=== PATIENT | female | born 1960 | race Caucasian/White ===

== ENCOUNTER 2025-01-25 05:15 | Observation (INO) ==
--- NOTE | 2025-01-03 12:20 | PAT Medication Instructions ---
Medication Instructions Date of Service January 03, 2025 Home Medications duloxetine 40 mg capsule,delayed release 40 mg PO QAM Lactobacillus acidophilus 10 billion cell capsule (Probiotic) 10,000 mmu cells PO QAM ascorbic acid 30 mg-collagen, hydrolyzed 833.3 mg tablet (Collagen Skin Renewal) 1 tab PO QAM cartilage 40 mg-collagen II 10 mg-boron 5 mg-hyaluronate 3.3 mg tablet (Joint Health) 1 tab PO QAM diclofenac sodium 1 % topical gel 2 g topical QAM magnesium 200 mg tablet 200 mg PO HS multivitamin 1 tab PO QAM omega 5-sig-stg-fish oil 1,000 mg (120 mg-180 mg) capsule (Fish Oil) 1 cap PO DAILY STOP taking 2 weeks before surgery (or as soon as possible if surgery is within 2 weeks) ascorbic acid 30 mg-collagen, hydrolyzed 833.3 mg tablet (Collagen Skin Renewal) 1 tab PO QAM cartilage 40 mg-collagen II 10 mg-boron 5 mg-hyaluronate 3.3 mg tablet (Joint Health) 1 tab PO QAM omega 7-rnf-xft-fish oil 1,000 mg (120 mg-180 mg) capsule (Fish Oil) 1 cap PO DAILY STOP taking 24 hours before surgery diclofenac sodium 1 % topical gel 2 g topical QAM DO NOT take the morning of surgery Lactobacillus acidophilus 10 billion cell capsule (Probiotic) 10,000 mmu cells PO Q multivitamin 1 tab PO QAM Take morning of surgery With a small sip of water, OTHERWISE NOTHING TO EAT OR DRINK AFTER MIDNIGHT: duloxetine 40 mg capsule,delayed release 40 mg PO QAM Take evening before surgery magnesium 200 mg tablet 200 mg PO HS Other Notes If you have any questions please call us at [phone] or [phone] or [phone] or [phone]
--- NOTE | 2025-01-06 09:58 | Anesthesiology Consultation ---
Date of Service January 06, 2025 Assessment & Plan (1) Encounter for pre-operative examination: - Infectious disease screening: Per assessment on 01/06/25- No known recent infectious disease contacts. Patient has had increased phlegm/mild cough starting 3+ weeks ago. Evaluated by PCP. [place] to be likely r/t allergies. Symptom onset > 10 days prior to DOS. Patient advised to contact PAT/surgeon if symptoms worsening/not at baseline prior to surgery. Nothing further needed at this time. - Outpatient joint assessment: Pt currently scheduled for inpatient pathway. If surgeon requests review for outpatient joint pathway, patient is an acceptable candidate for outpatient joint program from anesthesia standpoint pending surgeon's office assessment that patient is motivated, has good support and completes [facility] Program preop requirements. Chart Review Chart Review: Acceptable Risk for Surgery and Patient seen in Pre Admission Testing Teaching & Discussion Pre-Anesthesia Teaching/Discussion Notes: Instructed NPO after midnight before surgery,except medications with 15 cc of water. Medication instructions provided according to the PAT guidelines. History Surgery Operation Date: 01/25/25 07:00 Proposed Procedures p Left Total Knee Arthroplasty - Doug Ha MD Height/Weight Height: 5 ft 4 in Weight: 94.7 kg Allergies Allergy/AdvReac Type Severity Reaction Status Date / Time latex Allergy Intermediate Rash Verified 12/30/24 09:04 Penicillins Allergy Unknown Unknown Verified 01/06/25 10:43 (childhood) Medications Home Medications Medication Instructions Recorded Confirmed Last Taken duloxetine 40 mg capsule,delayed 40 mg PO QAM 09/09/24 12/30/24 Unknown release Lactobacillus acidophilus 10 10,000 mmu cells PO QAM 12/30/24 12/30/24 Unknown billion cell capsule (Probiotic) ascorbic acid 30 mg-collagen, 1 tab PO QAM 12/30/24 12/30/24 Unknown hydrolyzed 833.3 mg tablet (Collagen Skin Renewal) cartilage 40 mg-collagen II 10 1 tab PO QAM 12/30/24 12/30/24 Unknown mg-boron 5 mg-hyaluronate 3.3 mg tablet (Joint Health) diclofenac sodium 1 % topical gel 2 g topical QAM 12/30/24 12/30/24 Unknown magnesium 200 mg tablet 200 mg PO HS 12/30/24 12/30/24 Unknown multivitamin 1 tab PO QAM 12/30/24 12/30/24 Unknown omega 8-rtz-yws-fish oil 1,000 mg 1 cap PO DAILY 12/30/24 12/30/24 Unknown (120 mg-180 mg) capsule (Fish Oil) Past Medical History Medical History Arthritis Fibromyalgia History of COVID-2020 Hyperlipidemia No meds Exercise / Class Metabolic Activity II 4-5 Yardwork/Stairs/Walk up hill (one FS: No CP, no SOB) Past Family History Family History Father History of anesthesia reaction Father: Awareness/"feeling" with surgery in the past (pacemaker/urinary stent) Past Surgical History Surgical History History of carpal tunnel release R/L History of colonoscopy Hx of elbow surgery R/L Hx of tooth extraction [place] teeth extracted Past Anesthesia History No Hx of Anesthesia Complications Father: Awareness/"feeling" with surgery in the past (pacemaker/urinary stent) History of PONV No Hx of PONV and No Hx of Motion Sickness Social History Smoking Status: Former smoker Do You Dip or Chew Tobacco: No Smoking End Date: Quit 20+ years ago Hx Alcohol Use: Yes Alcohol type: beer, wine and hard liquor alcohol intake frequency: 0-2 drinks per day (1-2 drinks/day) Hx Substance Use: No substance use type: does not use Review of Systems Patient denies chest pain, shortness of breath, dyspnea on exertion, fever, chills, cough, wheezing, palpitations. Physical Exam Vital Signs BP 127/80 P 77 TEMP 98.3 SP02 96%RA RESP 16 Physical Full cervical extension range of motion. Full TMJ range of motion. TMD > 3.5 finger breaths Mallampati Score III Dentition: intact, several caps Lungs: clear throughout to auscultation Cardiac: regular rate and rhythm, no murmurs noted Spine: normal Carotid arteries: negative bruit Extremities: no LE edema Short neck Lab Results Anesthesia Preop Results Results Anesthesia Widget: WBC 7.80 K/ul (4.8-10.8) 01/06/25 Hgb 13.4 g/dl (12.0-16.0) 01/06/25 Hct 41.2 % (37.0-47.0) 01/06/25 Plt 266 K/uL (130-400) 01/06/25 Na 137 mmol/L (136-145) 01/06/25 K 4.6 mmol/L (3.5-5.1) 01/06/25 Cl 103 mmol/L (98-107) 01/06/25 CO2 29 mmol/L (21-32) 01/06/25 BUN 18 mg/dl (6-23) 01/06/25 Creat 0.85 mg/dl (0.6-1.2) 01/06/25 Glucose Level 98 mg/dl (70-99(Fasting)) 01/06/25 PT 10.1 Seconds (9.0-12.0) 01/06/25 PTT 29 Seconds (21-31) 01/06/25 INR 0.9 (0.9-1.1) 01/06/25 Blood Type O Positive 01/06/25 Antibody Screen NEGATIVE 01/06/25 Testing Electrocardiogram Date: 01/06/25 NSR at 82bpm. PRWP, consider anterior AL vs lead placement vs LVH. Chest X-Ray Date: 01/06/25 FINDINGS: Heart size and pulmonary vasculature are normal. No consolidation or pleural effusion. There is minimal scoliosis. IMPRESSION: No acute findings. Stress Test Date: 11/26/21 Type: exercise Exercise ECG treadmill stress test negative for inducible ischemia. 90% MPHR. 6 METS. Dyspnea noted with stress. Hypertensive blood pressure response to exercise.
[2025-01-25] MEDS: METOCLOPRAMIDE HCL 10 MG TABLET PO SCH (05:53)
[2025-01-25] MEDS: FAMOTIDINE 20 MG TAB PO SCH (05:53)
[2025-01-25] MEDS: CeleBREX 200 MG CAP PO SCH (05:53)
[2025-01-25] MEDS: dexAMETHasone**PF** 10 MG/ML VIAL IV SCH (05:53)
[2025-01-25] MEDS: ACETAMINOPHEN 500 MG TAB PO SCH ×2 (05:53→13:28)
[2025-01-25] MEDS: LR 500ML BOLUS, THEN 15ML/HR IV SCH (05:54)
[2025-01-25] MEDS: LR 60ML/HR IV SCH (05:54)
[2025-01-25] MEDS ORDERED: BUPIVACAINE 0.25% PF 30 ML VIAL ONE (06:21)
[2025-01-25] MEDS ORDERED: BUPIVACAINE 0.5 % 5 MG/1 ML PF 10ML VIAL ONE (06:21)
[2025-01-25] MEDS ORDERED: ONDANSETRON INJ 2 MG/ML 2 ML VIAL IV PRN ×2 (06:28→12:49)
[2025-01-25] MEDS ORDERED: ATROPINE SULFATE 0.1 MG/ML 10ML SYR IV PRN (06:28)
[2025-01-25] MEDS ORDERED: MIDAZOLAM HCL 1 MG/ML 2ML VIAL ONE ×2 (06:36→06:37)
--- NOTE | 2025-01-25 06:47 | History & Physical Bridge Note ---
Date of Service January 25, 2025 History & Physical Bridge Note I have examined the patient, reviewed the History & Physical and in the interval since the performance of the History & Physical I have noted the following changes of clinical significance: no changes noted
[2025-01-25] MEDS ORDERED: PHENYLEPHRINE 100MCG/ML 5ML SYR ONE (08:10)
[2025-01-25] MEDS ORDERED: ePHEDrine sulfate 50 MG/5 ML SYR ONE (08:10)
[2025-01-25] MEDS ORDERED: GLYCOPYRROLATE 0.2 MG/ML VIAL ONE (08:33)
[2025-01-25] MEDS: VANCOMYCIN HCL 1000MG/20ML VIAL ONE (08:41)
[2025-01-25] MEDS: ORTHO JOINT ANESTHETIC ONE (08:41)
[2025-01-25] MEDS: ROPIV 0.5% 246mg, Ketorolac 30mg, EPINEPHrine 0.5mg in NSS INFIL SCH (08:41)
[2025-01-25] MEDS ORDERED: PROPOFOL IV EMULSION 10 MG/ML 100 ML VIAL IV ONE (09:14)
--- NOTE | 2025-01-25 10:11 | Operative Report ---
PG Post Operative Report Pre & Post Diagnosis Operation Date: 01/25/25 07:00 Pre-Op Diagnosis: Left Knee Degenerative Joint Disease Post-Op Diagnosis: Left Knee Degenerative Joint Disease I identified the patient and participated in the time-out.: Yes Procedure Operation Date: 01/25/25 07:00 Actual Procedures p Left Total Knee Arthroplasty(Left) - Doug Ha MD Surgeon Doug Ha MD Religious Leader Santosh Ruiz PA-C Estimated Blood Loss 50 Findings Consistent with Post-Op Diagnosis Specimens Left knee sent for pathology. Anesthesia Type Spinal MAC Complications none Disposition Accompanied Patient To Recovery: No Indications The patient is a 64-year-old female who is now about 20+ years out from a previous ACL reconstruction of the left knee. She did quite well for many years. Over the past several years she developed increased pain discomfort in her left knee. She failed conservative measures. X-rays show progressive left knee arthritis. She elected proceed with left total knee arthroplasty. Description of Procedure Operative implants consist of: 1 Biomet Vanguard size 65 left posterior stabilized femoral component. 2. Biomet size 67 tibial tray with a 12.5 mm x 80 mm stem extension. 3. 12 mm posterior stabilized polyethylene insert. 4. 31 x 8 all poly patella. The patient was taken to the operating, identified, placed on the operating table in the supine position. All contact areas were appropriately padded. IV antibiotics were by anesthesia team. A spinal anesthetic and adductor canal block had been provided in the holding area. A Kendrick catheter was placed in sterile fashion to the left phytate was then placed in the left lower extremity was then prepped and draped in usual sterile fashion. The left leg was elevated and exsanguinated with use of an Esmarch and the tourniquet was placed at 300 mmHg. An anterior approach left knee was then performed to longitudinal incision centered over the patella. I did use a previous incision distally. Sharp dissection was carried through subcutaneous tissue down the extensor mechanism. A medial parapatellar arthrotomy incision was made. Some subperiosteal dissection was carried out medially. The fat pad was resected from the patella tendon. Lateral patellofemoral ligament was released. Patella subluxated laterally and the knee was flexed. The ACL and PCL were then released from the distal femur. The tibia subluxated anteriorly. The external treatment LYMErix then placed in the anterior face of the tibia and adjusted 14 mm medially. Proximal tibial cut was made essentially flush with the very most deficient aspect of the posterior medial tibial plateau. Some osteophytes taken off medially. Tibia sized to size 67. Attention drawn the femur. The distal femur there was a sharp drill. Intramedullary canal was suction. A left 5 degree valgus cutting guide was placed. This femoral cutting block was pinned in place. This femoral cut was made to take additional 3 mm of bone off distal femur. The femur was then sized to a size 65. The AP cutting block was pinned parallel to the epicondylar axis which was 4 degrees of external rotation. The anterior cut, anterior chamfer, posterior cut, posterior chamfer cuts were made. The box cutting guide was placed and just slight lateral and the box cut was made. The knee was flexed. The remnants of the medial and lateral menisci were excised. The osteophytes taken off the posterior aspect of the femur. A trial femoral component was placed. The tibial tray was then pinned in Felicitas external rotation. The drill and stem punch were used to create defect in the proximal tibial tray. I then reamed up to a size 14 on the reamer. We then assembled the 12.5 mm stem extension. The tibial trial was placed and fit nicely. We trialed the knee and the 12 mm insert fit most appropriately. Attention drawn the patella. The patella was cleaned of all soft tissue. Patella thickness measured 21 mm in thickness was cut down to about 15. Was sized to a size 34 patella. The lug holes were drilled for 34 patella. The lateral osteophyte was removed. The patella button was placed. Knee was taken through range of motion patella tracked nicely with no thumbs test. Attention drawn to placement permanent components. NuPrep all trial components were removed. Bone plug was placed into the distal femur limit blood loss. A double batch [place] G cement was mixed. I did add an additional gram of vancomycin due to her history of previous surgery. A Biomet Vanguard size 65 left Po stabilized femoral comp onent, a size 67 tibial tray with a 12.5 mm x 80 mm stem extension, 12 mm posterior box polyethylene insert, and a 31 x 8 all poly patella and then cemented in place. Knee was brought out into full extension. A final cement check was then performed. Pericapsular tissues were injected with total 100 cc of Ortho mix. The patient did receive 1 g tranexamic acid. The tourniquet was then let down for final tourniquet time was 64 minutes. Hemostasis was reduced electrocautery. Extensor [place] then closed with combination 1 PDS suture #1 Vicryl suture in [id number] fashion. Extensor [place] checked found to be intact. The subcutaneous tissue was then closed with 2 Dexon suture in a buried interrupted fashion skin was closed skin gerson. The leg was then cleaned and dried and a sterile dressing with Xeroform, 4 fours, sterile cast padding and Miguel bandage were applied. The patient was then transferred to the recovery room in stable condition. Patient tolerated the procedure well and there were no complications. Santosh Ruiz, my physician marketing assistant retail division, was present for the entire procedure. His assistance was required for proper patient positioning, prepping and draping, surgical exposure, retraction, perform the technical details of the operation, placement of the implants, closure of the incision site, and placement of postoperative sterile bandage. I attest to the content of the Intraoperative Record and any orders documented therein. Any exceptions are noted below.
--- NOTE | 2025-01-25 10:19 | XRay Report ---
TWO VIEWS LEFT KNEE CLINICAL HISTORY: Postoperative examination. FINDINGS: AP and crosstable lateral portable views of the left knee are compared to study dated 2024. A left knee arthroplasty is in near anatomic alignment. There has been undersurface remodeling of the patella. No acute fracture is seen. There are expected postoperative changes around the knee i ncluding skin clips, soft tissue edema, and subcutaneous gas. IMPRESSION: Expected postoperative changes status post left knee arthroplasty. No acute fracture is s een. ACT 112: Negative or not required by law. Electronically signed by: Aditya Espinoza M.D. 01/25/2025 10:18 AM
--- NOTE | 2025-01-25 11:39 | Anesthesiology Progress Note ---
Date of Service January 25, 2025 Anesthesia Post Procedure Vital Signs Vital Signs: Temp Pulse Pulse Resp BP Pulse Ox O2 Del Method 01/25/25 11:30 97 H 14 142/72 H 97 Nasal Cannula 01/25/25 11:15 98 H 14 138/74 99 Nasal Cannula 01/25/25 11:00 94 H 14 122/68 98 Nasal Cannula 01/25/25 10:50 36.5 C 95 H 12 118/76 98 Nasal Cannula 01/25/25 10:40 94 H 12 119/60 98 Nasal Cannula 01/25/25 10:30 93 H 12 120/61 100 Oxymask 01/25/25 10:20 93 H 12 108/59 L 100 Oxymask 01/25/25 10:10 98 H 14 115/49 L 98 Oxymask 01/25/25 10:00 36.3 C L 100 H 18 88/56 L 98 Oxymask 01/25/25 05:35 37 C 90 18 148/96 H 96 Room Air O2 Flow Rate 01/25/25 11:30 2 01/25/25 11:15 2 01/25/25 11:00 2 01/25/25 10:50 2 01/25/25 10:40 2 01/25/25 10:30 4 01/25/25 10:20 4 01/25/25 10:10 6 01/25/25 10:00 8 01/25/25 05:35 Transfer of Care Handoff Completed per policy Notes Mental Status: alert / awake / arousable and participated in evaluation Patient Amnestic to Procedure: Yes Nausea / Vomiting: adequately controlled Pain: adequately controlled Airway Patency, RR, SpO2: stable & adequate BP & HR: stable & adequate Hydration State: stable & adequate Neuraxial Anesthesia: was administered and sensory block is resolving Anesthetic Complications: no major complications apparent and Pt Satisfied with anesthetic care
[2025-01-25] MEDS ORDERED: diphenhydrAMINE Capsule 25 MG CAP PO PRN (12:49)
[2025-01-25] MEDS ORDERED: ALUMINUM/MAGNESIUM SUSP 30 ML UDC PO PRN (12:49)
[2025-01-25] MEDS ORDERED: NALOXONE HCL 0.4 MG/1 ML VIAL/CARP IV PRN (12:49)
[2025-01-25] MEDS ORDERED: NO NSAIDS SCH (12:49)
[2025-01-25] MEDS ORDERED: METOCLOPRAMIDE HCL INJ 5 MG/ML 2 ML VIAL IV PRN (12:49)
[2025-01-25] MEDS ORDERED: MAGNESIUM HYDROXIDE SUSP 30 ML UDC PO PRN (12:49)
[2025-01-25] MEDS ORDERED: HYDROmorphone INJ 0.5 MG/0.5 ML SYR IV PRN (12:49)
[2025-01-25] MEDS: SODIUM CHLORIDE 0.9% 1,000 ML IV SCH (13:08)
[2025-01-25] MEDS: KETOROLAC 30 MG/ML VIAL IV SCH (13:11)
[2025-01-25] MEDS: TRANEXAMIC ACID / 0.7% NACL 1,000 MG/100 ML BAG IV SCH (15:44)
[2025-01-25] MEDS: ASCORBIC ACID 500 MG TAB PO SCH (16:59)
[2025-01-25] MEDS: DOCUSATE SODIUM 100 MG CAP PO SCH (20:33)
[2025-01-25] MEDS: ASPIRIN 81 MG ECTAB PO SCH (20:33)
[2025-01-25] MEDS: MAGNESIUM OXIDE 400 MG TAB PO SCH (20:33)
[2025-01-25] MEDS: SENNA 8.6 MG TAB PO SCH (20:34)
[2025-01-25] MEDS ORDERED: SENNA 8.6 MG TAB PO SCH (21:00)
[2025-01-26 07:46] LABS: Hematocrit (blood only) 34.6 % (37.0-47.0); Hemoglobin 11.4 g/dl (12.0-16.0); Mean Corpuscular Hemoglobin 29.2 pg (25.0-34.0); Mean Corpuscular Volume 88.5 fL (80.0-100.0); Platelet Count 237 K/uL (130-400); RDW Standard Deviation 45.1 fL (36.4-46.3); Red Blood Count 3.91 M/uL (4.20-5.40); White Blood Count 10.09 K/ul (4.8-10.8)
[2025-01-26 07:59] LABS: Anion Gap 6.0 (3-11); Blood Urea Nitrogen 13.0 mg/dl (6-23); Calcium 8.9 mg/dl (8.6-10.3); Carbon Dioxide 27.0 mmol/L (21-32); Chloride 104.0 mmol/L (98-107); Creatinine Clr Calc Pharmacy 78.4 ml/min; Glucose 112.0 mg/dl (70-99(Fasting)); Potassium 4.2 mmol/L (3.5-5.1); Sodium 137.0 mmol/L (136-145)
[2025-01-26] MEDS: dexAMETHasone 10 MG in SYRINGE 0 ML IV SCH (08:07)
--- NOTE | 2025-01-26 08:24 | Orthopedic Progress Note ---
Date of Service January 26, 2025 Assessment & Plan (1) Status post total left knee replacement: * Continue Current Treatment * Disposition: home * Daily treatment: Physical Therapy/ Occupational Therapy per protocol * Weight bearing status: WBAT * Continue to monitor for ABLA * Pain control * DVT prophylaxis, ASA * Office/hospital f/u 2 weeks for progress check and staple/suture removal * Plan for discharge today pending PT/OT clearance Subjective .Active Problems: S/p left TKA POD 1 64 y/o female s/p left TKA. Doing well overall, pain managed and improved function. Denies fever/chills, chest pain/SOB, nausea/vomiting. Otherwise no complaints. Review of Systems All systems reviewed & are unremarkable except as noted in HPI & below. Physical Exam . * General: Alert and oriented, no acute distress * Constitutional: well-developed, well-nourished. * Respiratory: Normal respiratory effort, no distress * Gastrointestinal: No tenderness to palpation, no rigidity or guarding. * Skin: No rash or lesion. * Neurologic: Grossly normal * Musculoskeletal: left knee surgical dressing CDI, not removed for exam. Otherwise no obvious deformity or overlying skin changes RLE. Diffuse TTP distal thigh and knee region. Otherwise no specific tenderness of proximal thigh, lower leg, foot/ankle. AROM knee flexion 60 degrees limited by dressing. AROM foot/ankle intact. Sensation intact plantar/dorsal foot. Brisk capillary refill. Results & Data Results & Data Laboratory Results . Diagnostic Findings . Knee X-Ray 01/25/25 10:03 TWO VIEWS LEFT KNEE CLINICAL HISTORY: Postoperative examination. FINDINGS: AP and crosstable lateral portable views of the left knee are compared to study dated 09/09/2024. A left knee arthroplasty is in near anatomic alignment. There has been undersurface remodeling of the patella. No acute fracture is seen. There are expected postoperative changes around the knee including skin clips, soft tissue edema, and subcutaneous gas. IMPRESSION: Expected postoperative changes status post left knee arthroplasty. No acute fracture is seen. ACT 112: Negative or not required by law. Electronically signed by: Aditya Espinoza M.D. 01/25/2025 10:18 AM PG Care Time/CCT Total # of Minutes Spent Total Time Spent with Patient: Total time spent is greater than 50% in coordination of care (as documented) at patient's floor/unit and/or counseling patient: Coding Level of Care Code 90900 Post Operative Follow-Up Diagnoses Status post total left knee replacement Z96.652
[2025-01-26] MEDS: OMEGA-3 (PURIFIED FISH OIL) 1 GM CAP PO SCH (08:59)
[2025-01-26] MEDS: MULTIVITAMIN TAB PO SCH (08:59)
[2025-01-26] MEDS ORDERED: MULTIVITAMIN TAB PO SCH (09:00)
[2025-01-26] MEDS ORDERED: ASCORBIC ACID COLLAGEN PO SCH (09:00)
[2025-01-26] MEDS ORDERED: [UNRECOGNIZED DRUG - OTHER] PO SCH (09:00)
[2025-01-26] MEDS: ADVANCED PROBIOTIC 625 MG CAPSULE PO SCH (09:28)
== END 2025-01-26 10:51 | disposition home health service (06) ==
LOC: ASU 05:15 → PACUINP 05:15 → 3N 12:48

== ENCOUNTER 2025-05-11 08:58 | Observation (INO) ==
--- NOTE | 2025-04-11 10:13 | PAT Medication Instructions ---
Medication Instructions Date of Service April 11, 2025 Home Medications duloxetine 40 mg capsule,delayed release 40 mg PO QAM Lactobacillus acidophilus 10 billion cell capsule (Probiotic) 10,000 mmu cells PO QAM ascorbic acid 30 mg-collagen, hydrolyzed 833.3 mg tablet (Collagen Skin Renewal) 1 tab PO QAM cartilage 40 mg-collagen II 10 mg-boron 5 mg-hyaluronate 3.3 mg tablet (Joint Health) 1 tab PO QAM diclofenac sodium 1 % topical gel 2 g topical QAM magnesium 200 mg tablet 200 mg PO HS multivitamin 1 tab PO QAM omega 3-uan-whh-fish oil 1,000 mg (120 mg-180 mg) capsule (Fish Oil) 1 cap PO DAILY ibuprofen 125 mg-acetaminophen 250 mg tablet (Advil Dual Action) 2 tab PO BID PRN Pain ASK your surgeon for instructions ibuprofen 125 mg-acetaminophen 250 mg tablet (Advil Dual Action) 2 tab PO BID PRN Pain STOP taking 2 weeks before surgery (or as soon as possible if surgery is within 2 weeks) omega 8-ikv-mug-fish oil 1,000 mg (120 mg-180 mg) capsule (Fish Oil) 1 cap PO DAILY cartilage 40 mg-collagen II 10 mg-boron 5 mg-hyaluronate 3.3 mg tablet (Joint Health) 1 tab PO QAM STOP taking 24 hours before surgery diclofenac sodium 1 % topical gel 2 g topical QAM DO NOT take the morning of surgery Lactobacillus acidophilus 10 billion cell capsule (Probiotic) 10,000 mmu cells PO QAM ascorbic acid 30 mg-collagen, hydrolyzed 833.3 mg tablet (Collagen Skin Renewal) 1 tab PO QAM multivitamin 1 tab PO QAM Take morning of surgery With a small sip of water, OTHERWISE NOTHING TO EAT OR DRINK AFTER MIDNIGHT: duloxetine 40 mg capsule,delayed release 40 mg PO QAM Take evening before surgery magnesium 200 mg tablet 200 mg PO HS Other Notes If you have any questions please call us at [phone] or [phone] or [phone] or [phone]
--- NOTE | 2025-04-18 10:52 | Anesthesiology Consultation ---
Date of Service April 18, 2025 Assessment & Plan (1) Encounter for pre-operative examination: Chart Review Chart Review: Acceptable Risk for Surgery and Patient seen in Pre Admission Testing Awareness with left TKA 12/2024- ideally would not like awareness again Pt currently scheduled as 23 hours observation. If surgeon decides to change patient to Same Day [facility], patient would be acceptable risk for TKA, pending patient is motivated, has good support and surgeon's office completes [facility] preop requirements. Per PAT appt on 04/18/25, no recent illness/disease exposures, illness related symptoms, or recent illness/disease positive tests. Will leave to surgeon's discretion if preop Covid testing needed Left TKA 01/25/25= Done under SAB at L4-5 with two attempts Teaching & Discussion Pre-Anesthesia Teaching/Discussion Notes: Instructed NPO after midnight before surgery,except medications with 15 cc of water. Medication instructions provided according to the PAT guidelines. History Surgery Operation Date: 05/11/25 08:50 Proposed Procedures p Right Total Knee Arthroplasty - Doug Ha MD Height/Weight Height: 5 ft 4 in Weight: 93.2 kg Allergies Allergy/AdvReac Type Severity Reaction Status Date / Time latex Allergy Intermediate Rash Verified 04/11/25 09:01 Penicillins Allergy Unknown Unknown Verified 04/11/25 09:01 (childhood) Medications Home Medications Medication Instructions Recorded Confirmed Last Taken duloxetine 40 mg capsule,delayed 40 mg PO QAM 09/09/24 04/11/25 01/18/25 08:00 release Lactobacillus acidophilus 10 10,000 mmu cells PO QAM 12/30/24 04/11/25 01/18/25 billion cell capsule (Probiotic) ascorbic acid 30 mg-collagen, 1 tab PO QAM 12/30/24 04/11/25 01/18/25 hydrolyzed 833.3 mg tablet (Collagen Skin Renewal) cartilage 40 mg-collagen II 10 1 tab PO QAM 12/30/24 04/11/25 01/18/25 mg-boron 5 mg-hyaluronate 3.3 mg tablet (Joint Health) diclofenac sodium 1 % topical gel 2 g topical QAM 12/30/24 04/11/25 01/18/25 magnesium 200 mg tablet 200 mg PO HS 12/30/24 04/11/25 01/18/25 multivitamin 1 tab PO QAM 12/30/24 04/11/25 01/18/25 omega 0-brq-qvj-fish oil 1,000 mg 1 cap PO DAILY 12/30/24 04/11/25 01/18/25 (120 mg-180 mg) capsule (Fish Oil) ibuprofen 125 mg-acetaminophen 250 2 tab PO BID PRN Pain 04/11/25 04/11/25 Unknown mg tablet (Advil Dual Action) Past Medical History Medical History (Updated 04/18/25 @ 10:56 by Cheryl Rowe PA-C) Arthritis Fibromyalgia History of COVID-2020 - symptoms resolved History of diverticulitis Jan 2025- resolved (was hospitalized x 2 says ) Hyperlipidemia Diet controlled (recently checked per 04/18/25 PAT appt -and cholesterol WNL per patient) Exercise / Class Metabolic Activity II 4-5 Yardwork/Stairs/Walk up hill (one flight stairs - no chest pain or SOB) Past Family History Family History Father History of anesthesia reaction Father: Awareness/"feeling" with surgery in the past (pacemaker/urinary stent) Past Surgical History Surgical History (Updated 04/18/25 @ 10:52 by Cheryl Rowe PA-C) History of carpal tunnel release R/L History of colonoscopy History of total left knee replacement Hx of elbow surgery R/L Hx of tooth extraction [place] teeth extracted Past Anesthesia History No Hx of Anesthesia Complications (with exception to awareness with left TKA 12/2024) and No Family Hx of Anesthesia Complications History of PONV No Hx of PONV and No Hx of Motion Sickness Social History Smoking Status: Former smoker Do You Dip or Chew Tobacco: No Smoking End Date: over 20 years ago Hx Alcohol Use: Yes Alcohol type: beer, wine and hard liquor alcohol intake frequency: 0-2 drinks per day (1-2 drinks/day) Hx Substance Use: No substance use type: does not use Review of Systems - Hx snoring- no witnessed apnea - no hx of sleep study Patient denies chest pain, shortness of breath, dyspnea on exertion, reflux, cough, wheezing, palpitations. No hx of seizures, stroke, MS. 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 Permanent implant to molar Neck neck extension not limited Respiratory normal respiratory effort; no respiratory distress Auscultation: lungs clear to auscultation bilaterally; no wheezes Cardiovascular Rate/Rhythm: regular rate and regular rhythm Heart Sounds: no murmur Vessels: no carotid bruit Musculoskeletal Spine: no pain with cervical ROM Extremities: extremities normal to inspection Psychiatric Orientation: alert Lab Results Anesthesia Preop Results Results Anesthesia Widget: WBC 5.42 K/ul (4.8-10.8) 04/18/25 Hgb 12.9 g/dL (12.0-16.0) 04/18/25 Hct 38.4 % (37.0-47.0) 04/18/25 Plt 287 K/uL (130-400) 04/18/25 Na 138 mmol/L (136-145) 04/18/25 K 4.3 mmol/L (3.5-5.1) 04/18/25 Cl 104 mmol/L (98-107) 04/18/25 CO2 27 mmol/L (21-32) 04/18/25 BUN 15 mg/dl (6-23) 04/18/25 Creat 0.77 mg/dl (0.6-1.2) 04/18/25 Glucose Level 97 mg/dl (70-99(Fasting)) 04/18/25 PT 10.3 Seconds (9.0-12.0) 04/18/25 PTT 29 Seconds (21-31) 04/18/25 INR 1.0 (0.9-1.1) 04/18/25 Blood Type O Positive 04/18/25 Antibody Screen NEGATIVE 04/18/25 Testing Electrocardiogram Date: 01/06/25 NSR at 82bpm. PRWP, consider anterior MS vs lead placement vs LVH. (Had left TKA 01/25/25 with no noted issues) Chest X-Ray Date: 01/06/25 FINDINGS: Heart size and pulmonary vasculature are normal. No consolidation or pleural effusion. There is minimal scoliosis. IMPRESSION: No acute findings. Stress Test Date: 11/26/21 Type: exercise Exercise ECG treadmill stress test negative for inducible ischemia. 90% MPHR. 6 METS. Dyspnea noted with stress. Hypertensive blood pressure response to exercise.
[~2025-05-11 08:58] MED LIST: BUPIVACAINE 0.5 % 5 MG/1 ML PF 10ML VIAL ONE; PROPOFOL IV EMULSION 10 MG/ML 100 ML VIAL IV ONE; ROPIVACAINE 0.5% 5 MG/ML 30 ML VIAL ONE
--- NOTE | 2025-05-11 09:03 | History & Physical Bridge Note ---
Date of Service May 11, 2025 History & Physical Bridge Note I have examined the patient, reviewed the History & Physical and in the interval since the performance of the History & Physical I have noted the following changes of clinical significance: no changes noted
[2025-05-11] MEDS: LR 500ML BOLUS, THEN 15ML/HR IV SCH (09:32)
[2025-05-11] MEDS: METOCLOPRAMIDE HCL 10 MG TABLET PO SCH (09:33)
[2025-05-11] MEDS: FAMOTIDINE 20 MG TAB PO SCH (09:33)
[2025-05-11] MEDS: ACETAMINOPHEN 500 MG TAB PO SCH ×2 (09:33→15:48)
[2025-05-11] MEDS: CeleBREX 200 MG CAP PO SCH (09:33)
[2025-05-11] MEDS: dexAMETHasone**PF** 10 MG/ML VIAL IV SCH (09:33)
[2025-05-11] MEDS: LR 60ML/HR IV SCH (09:34)
[2025-05-11] MEDS ORDERED: LIDOCAINE 2% 2 ML VIAL/AMP(20MG/ML) INFIL ONE (09:51)
[2025-05-11] MEDS ORDERED: MIDAZOLAM HCL 1 MG/ML 2ML VIAL ONE (09:52)
[2025-05-11] MEDS ORDERED: PHENYLEPHRINE 100MCG/ML 5ML SYR ONE (11:53)
[2025-05-11] MEDS ORDERED: ePHEDrine sulfate 50 MG/5 ML SYR ONE (11:53)
[2025-05-11] MEDS ORDERED: ONDANSETRON INJ 2 MG/ML 2 ML VIAL ONE (11:56)
[2025-05-11] MEDS ORDERED: PHENYLEPHRINE HCL 10 MG/ML VIAL ONE (12:13)
[2025-05-11] MEDS: ROPIV 0.5% 246mg, Ketorolac 30mg, EPINEPHrine 0.5mg in NSS INFIL SCH (12:37)
[2025-05-11] MEDS: ORTHO JOINT ANESTHETIC ONE (12:38)
--- NOTE | 2025-05-11 13:33 | Operative Report ---
PG Post Operative Report Pre & Post Diagnosis Operation Date: 05/11/25 10:50 Pre-Op Diagnosis: Right Knee Osteoarthritis Post-Op Diagnosis: Right Knee Osteoarthritis I identified the patient and participated in the time-out.: Yes Procedure Operation Date: 05/11/25 10:50 Actual Procedures p Right Total Knee Arthroplasty, Cemented(Right) - Doug Ha MD Surgeon Doug Ha MD Preventative Maintenance Technician Santosh Ruiz PA-C Estimated Blood Loss 50 Findings Consistent with Post-Op Diagnosis Operative findings advanced right knee tricompartment DJD. She had grade 4 bfjj-hq-vwmo disease in all 3 compartments most severe medially. She had a chronic ACL deficiency. Osteophytes in all 3 compartments. Moderate-sized joint effusion. Specimens Right knee sent for pathology. Anesthesia Type Spinal MAC Complications none Disposition Accompanied Patient To Recovery: No Indications The patient is a 64-year-old female with a long history of bilateral knee pain discomfort described to gotten worse over time. She been through extensive treatments for pain less accessible. She had her left knee replaced about 4 months ago and has done quite well with this. She continued to be limited by right knee pain discomfort and stiffness. She elected proceed with right total knee arthroplasty. Description of Procedure Operative implants consists of: 1 Biomet Vanguard size 65 posterior stabilized femoral component. 2. Biomet size 67 tibial tray. 3. 12 mm posterior stabilized polyethylene insert. 4. 28 x 8 all poly patella. The patient was taken the op room, identified, and placed on the operating table in the supine position. All contact areas were appropriately padded. IV antibiotics were provided by anesthesia team. A spinal anesthetic and adductor canal block had been provided in the holding area. Kendrick catheter was placed in sterile fashion. Right thigh tent was then placed and the right lower extremity was then prepped and draped in usual sterile fashion. The right leg was elevated and exsanguinated with use of an Esmarch and tourniquet placed at 300 mmHg. An anterior approach to the right knee was then performed to longitudinal incision centered over the patella. Sharp dissection was Through subcutaneous tissue down the extensor mechanism. A medial parapatellar arthrotomy incision was made. Some subperiosteal dissection was carried out medially. The fat pad was resected beneath patella tendon. Lateral patellofemoral ligament was released. Patella subluxated laterally and knee was flexed. The osteophytes taken off distal femur. ACL was absent. The PCL was released from the distal femur the tibia subluxated anteriorly. The external tibial alignment jig was then placed on the anterior face the tibia and adjusted 14 mm medially. Proximal tibial cut was made remove about a millimeter of bone from the medial side. Some osteophytes taken off medially. The tibia was then sized to a size 67. Attention drawn the femur. The distal femur was entered with a sharp drill. Intramedullary canal was suction. A right 5 degree valgus cutting guide was placed but the distal femoral cutting block was pinned in place. This femoral cut was made take an additional 3 mm of bone off the distal femur. The femur was then sized to a size 65. The AP cutting block was pinned parallel to the epicondylar axis which was 4 degrees of external rotation. The anterior cut, anterior chamfer, posterior cut, posterior chamfer cuts were made. The box cutting guide was then placed in a just slightly lateral and the box cut was made. The knee was flexed. The remnants of the medial and lateral menisci were excised. The osteophytes taken off the posterior aspect of femur. Trial a trial femoral component was placed. The tibial tray was pinned in Felicitas external rotation and the drill and stem punch were used to create the defect in the proximal tibia for the tibial tray. The knee was then trialed and the 12 mm insert fit most appropriately. Attention drawn the patella. The patella was cleaned of all soft tissues. Patella thickness measured 20 mm in thickness was cut down to 13. Was sized to a size 28 patella. The lug holes were drilled for the 28 patella. Lateral osteophytes removed. Patella button was placed. Knee was taken through range of motion and the patella tracked nicely with no thumbs test. Attention was then drawn to placement permanent components. All trial components were removed. Bone plug was placed into distal femur limit blood loss. Double batch Palacos G cement was mixed. A Biomet Vanguard size 65 right, a size 67 tibial tray, a 12 mm pro stabilized polyethylene insert, and a 28 x 8 all poly patella then cemented in place. The knee was brought out into full extension till cement hardened. Final cement check was then performed. Pericapsular tissues were injected with a total of 100 cc of Ortho mix. Patient did receive 1 g tranexamic acid. The tourniquet was then let down for final tourniquet time 54 minutes. Hemostasis assured with electrocautery. Extensor Meclomen closed with combination 1 PDS suture #1 Vicryl suture in a [id number] fashion. Extensor Meclomen was checked found to be intact. Subcutaneous tissue was then closed with 2 Dexon suture in a buried interrupted fashion skin was closed skin gerson. Leg was then cleaned and dried and a sterile dressing with Xeroform, 4 fours, sterile cast padding, Miguel bandage were applied. Patient then transferred to the recovery room in stable condition. Patient tolerated procedure well and there were no complications. Santosh Ruiz, my physician chef's assistant, was present for the entire procedure. His assistance was essential and required for appropriate patient positioning, prepping and draping, surgical exposure, performing the technical details of the operation, placement the implants, closure of the wound, and placement of the sterile bandage. I attest to the content of the Intraoperative Record and any orders documented therein. Any exceptions are noted below.
--- NOTE | 2025-05-11 14:08 | XRay Report ---
TWO VIEWS RIGHT KNEE CLINICAL HISTORY: Postoperative examination. FINDINGS: AP and crosstable lateral portable views of the right knee are obtained. A right knee arthr oplasty is in near anatomic alignment. There has been undersurface remodeling of the patella. No acut e fracture is seen. There are expected postoperative changes around the knee including skin clips, so ft tissue edema, and subcutaneous gas. IMPRESSION: Expected postoperative changes status post right knee arthroplasty. No acute fracture is seen. ACT 112: Negative or not required by law. Electronically signed by: Aditya Espinoza M.D. 05/11/2025 2:07 PM
[2025-05-11] MEDS ORDERED: HYDROmorphone INJ 0.5 MG/0.5 ML SYR IV PRN (14:34)
[2025-05-11] MEDS ORDERED: MAGNESIUM HYDROXIDE SUSP 30 ML UDC PO PRN (14:34)
[2025-05-11] MEDS ORDERED: ONDANSETRON INJ 2 MG/ML 2 ML VIAL IV PRN (14:34)
[2025-05-11] MEDS ORDERED: METOCLOPRAMIDE HCL INJ 5 MG/ML 2 ML VIAL IV PRN (14:34)
[2025-05-11] MEDS ORDERED: NALOXONE HCL 0.4 MG/1 ML VIAL/CARP IV PRN (14:34)
[2025-05-11] MEDS ORDERED: diphenhydrAMINE Capsule 25 MG CAP PO PRN (14:34)
[2025-05-11] MEDS ORDERED: ALUMINUM/MAGNESIUM SUSP 30 ML UDC PO PRN (14:34)
--- NOTE | 2025-05-11 15:47 | Anesthesiology Progress Note ---
Date of Service May 11, 2025 Anesthesia Post Procedure Vital Signs Vital Signs: Temp Pulse Pulse Resp BP Pulse Ox O2 Del Method 05/11/25 15:04 36.7 C 105 H 16 138/73 94 Room Air 05/11/25 15:00 103 H 11 L 145/63 H 98 Nasal Cannula 05/11/25 14:45 36.7 C 102 H 10 L 138/64 98 Nasal Cannula 05/11/25 14:30 99 H 10 L 133/64 97 Nasal Cannula 05/11/25 14:15 97 H 10 L 147/67 H 92 Room Air 05/11/25 14:00 36.5 C 96 H 11 L 150/63 H 93 Room Air 05/11/25 13:50 95 H 11 L 136/67 94 Room Air 05/11/25 13:40 95 H 12 141/79 H 96 Room Air 05/11/25 13:30 95 H 11 L 115/65 99 Oxymask 05/11/25 13:28 36.1 C L 96 H 12 135/53 L 98 Oxymask 05/11/25 09:55 37 C 82 18 150/81 H 95 Room Air O2 Flow Rate 05/11/25 15:04 05/11/25 15:00 2 05/11/25 14:45 2 05/11/25 14:30 2 05/11/25 14:15 05/11/25 14:00 05/11/25 13:50 05/11/25 13:40 05/11/25 13:30 8 05/11/25 13:28 8 05/11/25 09:55 Transfer of Care Handoff Completed per policy Notes Mental Status: alert / awake / arousable and participated in evaluation Patient Amnestic to Procedure: Yes Nausea / Vomiting: adequately controlled Pain: adequately controlled Airway Patency, RR, SpO2: stable & adequate BP & HR: stable & adequate Hydration State: stable & adequate Neuraxial Anesthesia: was administered and sensory block is resolving Anesthetic Complications: no major complications apparent and Pt Satisfied with anesthetic care
[2025-05-11] MEDS: KETOROLAC 30 MG/ML VIAL IV SCH (15:49)
[2025-05-11] MEDS: SODIUM CHLORIDE 0.9% 1,000 ML IV SCH (15:49)
[2025-05-11] MEDS: ASCORBIC ACID 500 MG TAB PO SCH (17:35)
[2025-05-11] MEDS: TRANEXAMIC ACID / 0.7% NACL 1,000 MG/100 ML BAG IV SCH (19:30)
[2025-05-11] MEDS ORDERED: SENNA 8.6 MG TAB PO SCH (21:00)
[2025-05-11] MEDS: SENNA 8.6 MG TAB PO SCH (21:10)
[2025-05-11] MEDS: MAGNESIUM OXIDE 400 MG TAB PO SCH (21:10)
[2025-05-11] MEDS: ASPIRIN 81 MG ECTAB PO SCH (21:11)
[2025-05-11] MEDS: DOCUSATE SODIUM 100 MG CAP PO SCH (21:12)
[2025-05-12 07:11] LABS: Hematocrit (blood only) 32.4 % (37.0-47.0); Hemoglobin 10.6 g/dL (12.0-16.0); Mean Corpuscular Hemoglobin 28.3 pg (25.0-34.0); Mean Corpuscular Volume 86.6 fL (80.0-100.0); Platelet Count 227 K/uL (130-400); RDW Standard Deviation 47.8 fL (36.4-46.3); Red Blood Count 3.74 M/uL (4.20-5.40); White Blood Count 13.60 K/ul (4.8-10.8)
[2025-05-12 07:37] VITALS: BP 164/78; PULSE 89; RESP 16; TEMP 99; O2SAT 98
[2025-05-12] MEDS: OMEGA-3 (PURIFIED FISH OIL) 1 GM CAP PO SCH (07:50)
[2025-05-12] MEDS: dexAMETHasone 10 MG in SYRINGE 0 ML IV SCH (07:50)
[2025-05-12] MEDS: LACTOBACILLUS ACIDOPHILUS 1 GM PACK PO SCH (07:51)
[2025-05-12] MEDS: MULTIVITAMIN TAB PO SCH (07:52)
[2025-05-12 07:58] LABS: Anion Gap 7.0 (3-11); Blood Urea Nitrogen 14.0 mg/dl (6-23); Calcium 8.3 mg/dl (8.6-10.3); Carbon Dioxide 27.0 mmol/L (21-32); Chloride 104.0 mmol/L (98-107); Creatinine Clr Calc Pharmacy 83.4 ml/min; Glucose 144.0 mg/dl (70-99(Fasting)); Potassium 4.2 mmol/L (3.5-5.1); Sodium 138.0 mmol/L (136-145)
[2025-05-12] MEDS ORDERED: NON-FORMULARY MEDICATION (Multivitamin Tablet) PO SCH (09:00)
[2025-05-12] MEDS ORDERED: ASCORBIC ACID COLLAGEN PO SCH (09:00)
[2025-05-12] MEDS ORDERED: [UNRECOGNIZED DRUG - OTHER] PO SCH (09:00)
--- NOTE | 2025-05-12 10:12 | Orthopedic Progress Note ---
Date of Service May 12, 2025 Assessment & Plan (1) Status post total right knee replacement: * Continue Current Treatment * Disposition: home * Daily treatment: Physical Therapy/ Occupational Therapy per protocol * Weight bearing status: WBAT * Continue to monitor for ABLA * Pain control * DVT prophylaxis, ASA * Office/hospital f/u 2 weeks for progress check and staple/suture removal * Plan for discharge today pending PT/OT clearance Subjective . Active Problems: S/p right TKA POD 1 64 y/o female s/p right TKA. Doing well overall, pain managed and improved function. Denies fever/chills, chest pain/SOB, nausea/vomiting. Otherwise no complaints. Review of Systems All systems reviewed & are unremarkable except as noted in HPI & below. Physical Exam . * General: Alert and oriented, no acute distress * Constitutional: well-developed, well-nourished. * Respiratory: Normal respiratory effort, no distress * Gastrointestinal: No tenderness to palpation, no rigidity or guarding. * Skin: No rash or lesion. * Neurologic: Grossly normal * Musculoskeletal: Right knee surgical dressing CDI, not removed for exam. Otherwise no obvious deformity or overlying skin changes RLE. Diffuse TTP distal thigh and knee region. Otherwise no specific tenderness of proximal thigh, lower leg, foot/ankle. AROM knee flexion 90 degrees. AROM foot/ankle intact. Sensation intact plantar/dorsal foot. Brisk capillary refill. Results & Data Results & Data Laboratory Results . Diagnostic Findings . Knee X-Ray 05/11/25 13:26 TWO VIEWS RIGHT KNEE CLINICAL HISTORY: Postoperative examination. FINDINGS: AP and crosstable lateral portable views of the right knee are obtained. A right knee arthroplasty is in near anatomic alignment. There has been undersurface remodeling of the patella. No acute fracture is seen. There are expected postoperative changes around the knee including skin clips, soft tissue edema, and subcutaneous gas. IMPRESSION: Expected postoperative changes status post right knee arthroplasty. No acute fracture is seen. ACT 112: Negative or not required by law. Electronically signed by: Aditya Espinoza M.D. 05/11/2025 2:07 PM PG Care Time/CCT Total # of Minutes Spent Total Time Spent with Patient: Total time spent is greater than 50% in coordination of care (as documented) at patient's floor/unit and/or counseling patient: Coding Level of Care Code 12990 Post Operative Follow-Up Diagnoses Status post total right knee replacement Z96.655
== END 2025-05-12 11:30 | disposition home or self-care (01) ==
LOC: ASU 08:58 → 3W 08:58